=== PATIENT | female | born 1995 | race Caucasian/White ===

== ENCOUNTER 2017-02-18 11:54 | Emergency (ER) | payer OTHER ==
[~2017-02-18] VITALS: Ht 157.5 cm; Wt 54.4 kg
[2017-02-18 12:07] VITALS: BP 113/71
[2017-02-18] MEDS ORDERED: CEPH-264 PO (12:27)
--- NOTE | 2017-02-18 12:28 | PHYS DOC ---
Past History Past Medical History: Anxiety, Depression Past Surgical History: No Surgical History Alcohol Use: None Drug Use: Marijuana Social History Narrative: HASN;T USED [facility] SINCE FINDING OUT SHE WAS Adult General Chief Complaint Chief Complaint: TOE PROBLEM [facility] HPI Patient is a 21 year old female who presents with complaints of redness and swelling to the left great toe. Patient states that her symptoms have been present for the past 2 days. Patient states that she has had worsening pain affecting the toe. Patient states that the symptoms are greatest around the nailbed. Patient denies any other associated symptoms. Patient states that she is currently 5 months . Patient has had no significant complications with her . Patient denies any vaginal bleeding, discharge, or abdominal or pelvic pain. Patient rates her pain currently as 3 out of 10. Agent that Tylenol last night to try to help with symptoms and stated that this gave her minimal relief. Review of Systems Review of Systems Constitutional: Denies fever or chills [] Respiratory: Denies cough or shortness of breath [] Cardiovascular: No additional information not addressed in HPI [] GI: Denies abdominal pain, nausea, vomiting, bloody stools or diarrhea [] : Denies dysuria or hematuria [] Musculoskeletal: Left great toe redness and swelling [] Integument: Denies rash or skin lesions [] Neurologic: Denies headache, focal weakness or sensory changes [] Allergies Allergies Allergies Coded Allergies Type Severity Reaction Last Updated Verified No Known Drug Allergies 02/18/17 No Physical Exam Physical Exam Constitutional: Alert, afebrile, no acute distress. [] HENT: Normocephalic, atraumatic, bilateral external ears normal, oropharynx moist, no oral exudates, nose normal. [] Cardiovascular:Heart rate regular rhythm, no murmur [] Lungs & Thorax: Bilateral breath sounds clear to auscultation [] Abdomen: Bowel sounds normal, soft, no tenderness, no masses, no pulsatile masses. [] Skin: Warm, dry, erythema surrounding nailbed of left great toe with tenderness to palpation. [] Extremities: Left great toe tenderness palpation near nailbed, no cyanosis, no clubbing, ROM intact, no edema. [] Neurologic: Alert and oriented X 3, normal motor function, normal sensory function, no focal deficits noted. [] Current Patient Data Vital Signs Vital Signs Date Time Temp Pulse Resp B/P (MAP) Pulse Ox O2 Delivery O2 Flow Rate FiO2 02/18/17 12:07 97.9 92 16 97 Room Air EKG EKG Not performed [] Radiology/Procedures Radiology/Procedures Not performed [] Course & Med Decision Making Course & Med Decision Making Pertinent Labs and Imaging studies reviewed. (See chart for details) Patient's symptoms appear consistent with early cellulitis of the left great toe. No observable fluid collection consistent with paronychia. Patient will be started on oral Keflex for treatment. Advised continued use of Tylenol as needed for pain and also advised use of warm compresses to the affected area to prevent abscess formation. Advised follow-up in 2-3 days with patient's primary doctor and return to emergency department for any worsening symptoms. Patient voiced understanding and in agreement with treatment plan. Dragon Disclaimer Dragon Disclaimer This chart was dictated in whole or in part using Voice Recognition software in a busy, high-work load, and often noisy Emergency Department environment. It may contain unintended and wholly unrecognized errors or omissions. Departure Departure: Impression: Primary Impression: Cellulitis of great toe Disposition: 01 HOME, SELF-CARE Condition: IMPROVED Referrals: PCP,NO (PCP) Patient Instructions: Cellulitis Additional Instructions: Follow-up with your primary doctor in 2-3 days. Return to the emergency department for any worsening symptoms. Scripts Cephalexin (KEFLEX) 500 Mg Capsule 1 CAP PO TID, #21 CAP Prov: FABIENNE OLIVER MD 02/18/17 Problem Qualifiers Primary Impression: Cellulitis of great toe Laterality: left Qualified Codes: L03.032 - Cellulitis of left toe FABIENNE OLIVER MD February 18, 2017 12:28
[2017-02-18] MEDS ORDERED: ACETAMINOPHEN 325 MG TABLET PO ONE (12:55)
[2017-02-18] MEDS ORDERED: CEPHALEXIN 500 MG CAPSULE PO ONE (12:55)
== END 2017-02-18 12:40 | disposition home or self-care (01) ==
LOC: ER 11:54
DX: O98.811 Other maternal infectious and parasitic diseases complicating pregnancy, first trimester (principal); L03.032 Cellulitis of left toe; F12.10 Cannabis abuse, uncomplicated; Z3A.01 Less than 8 weeks gestation of pregnancy
CPT/HCPCS: 99283

== ENCOUNTER 2017-04-27 17:22 | Emergency (ER) | payer OTHER ==
[~2017-04-27] VITALS: Ht 154.9 cm; Wt 70.8 kg
[~2017-04-27 17:22] MED LIST: CEPH-264 PO
[2017-04-27 18:29] LABS: BASO % 0 % (0-3); EOS # 0.1 x10^3/uL (0.0-0.7); EOS % 1 % (0-3); HEMATOCRIT 36.1 % (36.0-47.0); HEMOGLOBIN 12.3 g/dL (12.0-15.5); LYMPH # 2.1 x10^3/uL (1.0-4.8); LYMPH % 19 % (24-48); MEAN CORPUSCULAR HEMOGLOBIN 30 pg (25-35); MEAN CORPUSCULAR HGB CONC 34 g/dL (31-37); MEAN CORPUSCULAR VOLUME 88 fL (79-100); MONO # 0.6 x10^3/uL (0.0-1.1); MONO % 5 % (0-9); NEUT # 8.3 x10^3uL (1.8-7.7); NEUT % 76 % (31-73); PLATELET COUNT 154 x10^3/uL (140-400); RED BLOOD COUNT 4.13 x10^6/uL (3.50-5.40); RED CELL DISTRIBUTION WIDTH 14.2 % (11.5-14.5)
[2017-04-27 18:39] LABS: ALBUMIN 2.8 g/dL (3.4-5.0); CALCIUM 8.6 mg/dL (8.5-10.1); CREATININE 0.5 mg/dL (0.6-1.0); DIRECT BILIRUBIN 0.1 mg/dL (0.0-0.2); GFR 157.3; POTASSIUM 3.4 mmol/L (3.5-5.1); TOTAL BILIRUBIN 0.3 mg/dL (0.2-1.0)
[2017-04-27] MEDS ORDERED: MAGNESIUM OXIDE 400 MG TABLET PO ONE (18:45)
[2017-04-27] MEDS ORDERED: diphenhydrAMINE HCL 25 MG CAPSULE PO ONE (18:45)
[2017-04-27 18:51] LABS: BILIRUBIN,URINE NEG (NEG); CLARITY,URINE CLEAR; COLOR,URINE STRAW; GLUCOSE,URINE NEG (NEG)
[2017-04-27 18:52] LABS: BACTERIA,URINE 0 /HPF (0-FEW); NITRITE,URINE NEG (NEG); RBC,URINE 0 /HPF (0-2); SQUAMOUS EPITHELIAL CELL,UR FEW /LPF; UROBILINOGEN,URINE 0.2 mg/dL (0.2 mg/dL); WBC,URINE 0 /HPF (0-4)
[2017-04-27] MEDS ORDERED: POTASSIUM CHLORIDE 20 MEQ TABLET.ER. PO ONE (19:00)
[2017-04-27] MEDS ORDERED: VITAMIN B COMPLEX CAPSULE. PO ONE (19:00)
--- NOTE | 2017-04-27 19:11 | PHYS DOC ---
Past History Past Medical History: Other Past Surgical History: No Surgical History Alcohol Use: None Drug Use: None Adult General Chief Complaint Chief Complaint: HEADACHE HPI HPI Patient is a 21-year-old female presenting to the emergency department for evaluation of a headache that has been going on for 2-3 days. She says that it was intermittent for the first 2 days however since waking up this morning she has had a constant pounding frontal headache. She says that she is having no nausea vomiting fevers chills photophobia neck stiffness vision changes or unilateral weakness numbness or tingling. She is 31 weeks G1 with no complications on this and follows at [facility] with Dr. Cotto. She has tried Tylenol for the pain with minimal relief. Review of Systems Review of Systems Constitutional: Denies fever or chills [] Eyes: Denies change in visual acuity, redness, or eye pain [] HENT: Denies nasal congestion or sore throat [] Respiratory: Denies cough or shortness of breath [] Cardiovascular: No additional information not addressed in HPI [] GI: Denies abdominal pain, nausea, vomiting, bloody stools or diarrhea [] : Denies dysuria or hematuria [] Musculoskeletal: Denies back pain or joint pain [] Integument: Denies rash or skin lesions [] Neurologic: + headache. No focal weakness or sensory changes [] Current Medications Current Medications Current Medications Medications (Trade) Dose Ordered Sig/Tammi Start Time Stop Time Status Last Admin Dose Admin Diphenhydramine HCl (Benadryl) 25 mg 1X ONCE 04/27/17 18:45 04/27/17 18:46 DC Magnesium Oxide (Magnesium Oxide) 400 mg 1X ONCE 04/27/17 18:45 04/27/17 18:46 DC Potassium Chloride (Klor-Con) 20 meq 1X ONCE 04/27/17 19:00 04/27/17 19:01 UNV Vitamin B Complex 1 cap 1X ONCE 04/27/17 19:00 04/27/17 19:01 DC Allergies Allergies Allergies Coded Allergies Type Severity Reaction Last Updated Verified No Known Drug Allergies 02/18/17 No Physical Exam Physical Exam Constitutional: Well developed, well nourished, no acute distress, non-toxic appearance. [] HENT: Normocephalic, atraumatic, bilateral external ears normal, oropharynx moist, no oral exudates, nose normal. [] Eyes: PERRLA, EOMI, conjunctiva normal, no discharge. [] Neck: Normal range of motion, no tenderness, supple, no stridor. [] Cardiovascular:Heart rate regular rhythm, no murmur [] Lungs & Thorax: Bilateral breath sounds clear to auscultation [] Abdomen: Bowel sounds normal, soft, no tenderness, no masses, no pulsatile masses. [] Skin: Warm, dry, no erythema, no rash. [] Back: No tenderness, no CVA tenderness. [] Extremities: No tenderness, no cyanosis, no clubbing, ROM intact, no edema. [] Neurologic: Alert and oriented X 3, normal motor function, normal sensory function, no focal deficits noted. [] Current Patient Data Vital Signs Vital Signs Date Time Temp Pulse Resp B/P (MAP) Pulse Ox O2 Delivery O2 Flow Rate FiO2 04/27/17 18:15 98.4 87 18 99 Room Air Lab Results Laboratory Tests Test 04/27/17 17:45 04/27/17 18:06 Urine Collection Type Unknown Urine Color Straw Urine Clarity Clear Urine pH 6.0 Urine Specific [place] <=1.005 Urine Protein Neg (NEG-TRACE) Urine Glucose (UA) Neg mg/dL (NEG) Urine Ketones (Stick) Neg mg/dL (NEG) Urine Blood Trace (NEG) Urine Nitrite Neg (NEG) Urine Bilirubin Neg (NEG) Urine Urobilinogen Dipstick 0.2 mg/dL (0.2 mg/dL) Urine Leukocyte Esterase Neg (NEG) Urine RBC 0 /HPF (0-2) Urine WBC 0 /HPF (0-4) Urine Squamous Epithelial Cells Few /LPF Urine Bacteria 0 /HPF (0-FEW) White Blood Count 11.0 x10^3/uL (4.0-11.0) Red Blood Count 4.13 x10^6/uL (3.50-5.40) Hemoglobin 12.3 g/dL (12.0-15.5) Hematocrit 36.1 % (36.0-47.0) Mean Corpuscular Volume 88 fL (79-100) Mean Corpuscular Hemoglobin 30 pg (25-35) Mean Corpuscular Hemoglobin Concent 34 g/dL (31-37) Red Cell Distribution Width 14.2 % (11.5-14.5) Platelet Count 154 x10^3/uL (140-400) Neutrophils (%) (Auto) 76 % (31-73) H Lymphocytes (%) (Auto) 19 % (24-48) L Monocytes (%) (Auto) 5 % (0-9) Eosinophils (%) (Auto) 1 % (0-3) Basophils (%) (Auto) 0 % (0-3) Neutrophils # (Auto) 8.3 x10^3uL (1.8-7.7) H Lymphocytes # (Auto) 2.1 x10^3/uL (1.0-4.8) Monocytes # (Auto) 0.6 x10^3/uL (0.0-1.1) Eosinophils # (Auto) 0.1 x10^3/uL (0.0-0.7) Basophils # (Auto) 0.0 x10^3/uL (0.0-0.2) Platelet Estimate Pending Sodium Level 140 mmol/L (136-145) Potassium Level 3.4 mmol/L (3.5-5.1) L Chloride Level 106 mmol/L (98-107) Carbon Dioxide Level 23 mmol/L (21-32) Anion Gap 11 (6-14) Blood Urea Nitrogen 5 mg/dL (7-20) L Creatinine 0.5 mg/dL (0.6-1.0) L Estimated GFR (Cockcroft-Gault) 157.3 Glucose Level 84 mg/dL (70-99) Calcium Level 8.6 mg/dL (8.5-10.1) Total Bilirubin 0.3 mg/dL (0.2-1.0) Direct Bilirubin 0.1 mg/dL (0.0-0.2) Aspartate Amino Transferase (AST) 20 U/L (15-37) Alanine Aminotransferase (ALT) 27 U/L (14-59) Alkaline Phosphatase 128 U/L (46-116) H Total Protein 7.0 g/dL (6.4-8.2) Albumin 2.8 g/dL (3.4-5.0) L EKG EKG [] Radiology/Procedures Radiology/Procedures [] Course & Med Decision Making Course & Med Decision Making Labs are normal with no proteinuria making eclampsia quite unlikely in addition her blood pressure heart rate chemistries and hematology are unremarkable. She has no other concerning symptoms so I do not think this is a meningitis or cerebral venous thrombosis. Subarachnoid hemorrhage appears unlikely as well given the chronicity and not sudden in onset. She was given Benadryl vitamin B6 and magnesium with potassium and her headache improved. I told her to bring plenty of fluids including Gatorade and eat a well-balanced diet. I told her she could follow with the neurologist and her OB in the next 2-3 days to ensure improvement come back to the ER sooner with any worsening pain fevers vomiting or other general concerns. Dragon Disclaimer Dragon Disclaimer This chart was dictated in whole or in part using Voice Recognition software in a busy, high-work load, and often noisy Emergency Department environment. It may contain unintended and wholly unrecognized errors or omissions. Departure Departure: Impression: Primary Impression: Headache in Additional Impression: Hypokalemia Disposition: 01 HOME, SELF-CARE Condition: GOOD Referrals: [facility] (PCP) Aramis JIMENEZ MD Patient Instructions: Headache, FAQs Additional Instructions: Drink plenty of water and Gatorade and eat a well-balanced diet. Continue taking Tylenol for your headache and he can add and Benadryl and a vitamin B complex. Follow with the neurologist and OB in the next 2-3 days and come back to the ER sooner with any worsening pain fevers vomiting or other general concerns. Problem Qualifiers Primary Impression: Headache in Trimester: third trimester Qualified Codes: O26.893 - Other specified related conditions, third trimester; R51 - Headache IVET AKINS DO Apr 27, 2017 19:11
[2017-04-27 19:20] LABS: % BANDS 1 % (0-9); % BASOS 1 % (0-3); % LYMPHS 20 % (24-48); % MONOS 5 % (0-10); % MYELOS 3 % (0-0); % SEGS 70 % (35-66)
[2017-04-27 19:28] VITALS: BP 102/65
[2017-04-27 19:36] LABS: PLT ESTIMATE ADEQUATE (ADEQUATE)
== END 2017-04-27 19:28 | disposition home or self-care (01) ==
LOC: ER 17:22
DX: O26.893 Other specified pregnancy related conditions, third trimester (principal); R51 Headache; E87.6 Hypokalemia; Z3A.31 31 weeks gestation of pregnancy
CPT/HCPCS: 36415; 80048; 80076; 81001; 85007; 85027; 99284; Q0163